=== PATIENT | female | born 1950 | race Caucasian/White ===

== ENCOUNTER 2023-08-08 09:58 | Outpatient (CLI) | payer MEDICARE, OTHER, SELFPAY ==
--- NOTE | 2023-08-08 10:00 | MM_ITS ---
WS: [id number] SCREENING DIGITAL BREAST TOMOSYNTHESIS MAMMOGRAM WITH CAD HISTORY: SCREENING COMPARISON: None available. Bilateral CC and MLO with tomosynthesis and synthetic mammography submitted. Computer aided detection analyzed. Breast composition: The breasts are heterogeneously dense, which may obscure small masses. Well-circu mscribed mass measuring 17 x 14 mm in the anterior LEFT breast near 11-12 o'clock. No calcifications. IMPRESSION: MM/[place] [id number] BI-RADS: 0-Incomplete: Need additional imaging evaluation FOLLOW UP: Need Additional Imaging Recommendation: LEFT breast ultrasound, limited. Anterior LEFT breast 11-12 o'c lock.
== END 2023-08-08 09:59 | disposition home or self-care (01) ==
LOC: MOBLMAM 10:05
PROVIDERS: PCP Nurse Practitioner Family; Visit Provider Nurse Practitioner Family
DX: Z12.31 Encounter for screening mammogram for malignant neoplasm of breast (principal)
CPT/HCPCS: 77063; 77067

== ENCOUNTER 2023-10-08 10:09 | Outpatient (CLI) | payer MEDICARE, OTHER, SELFPAY ==
--- NOTE | 2023-10-08 10:23 | US_ITS ---
WS: [id number] ULTRASOUND LEFT BREAST HISTORY: OTHER ABNORMAL INCONCLUSIVE FINDINGS follow-up screening mammogram 08/08/2023 COMPARISON: 08/08/2023 mammogram TECHNIQUE: 2-D and Doppler. Very well-circumscribed hypoechoic mass at 12:00, 2 cm from the nipple corresponds to the mammographi c abnormality. Mass measures 1.7 x 0.7 x 1.5 cm. This is a well-circumscribed mass and is most likely a fibroadenoma. IMPRESSION: US/US breast LT limited* [id number] BI-RADS: 4-Suspicious Finding-Biopsy Should Be Considered FOLLOW-UP: Biopsy Recommended Ultrasound guided biopsy recommended of the solid well-circumscribed mass at 12 :00 LEFT breast. Favor this is a benign fibroadenoma. Biopsy can be performed t o confirm diagnosis.
== END 2023-10-08 10:10 | disposition home or self-care (01) ==
LOC: RAD 10:10
PROVIDERS: PCP Nurse Practitioner Family; Visit Provider Nurse Practitioner Family
DX: N63.25 Unspecified lump in the left breast, overlapping quadrants (principal)
CPT/HCPCS: 76642

== ENCOUNTER → 2025-06-09 09:35 | Outpatient (BNVA) | payer MEDICARE, OTHER, SELFPAY | PROVIDERS: PCP Nurse Practitioner Family; Visit Provider Nurse Practitioner Family | DX: L57.8 Other skin changes due to chronic exposure to nonionizing radiation (principal); L82.1 Other seborrheic keratosis; L82.0 Inflamed seborrheic keratosis; Z78.9 Other specified health status; L53.8 Other specified erythematous conditions; D48.5 Neoplasm of uncertain behavior of skin; L57.0 Actinic keratosis | CPT/HCPCS: 11102; 17000; 17110; 99203 ==

== ENCOUNTER → 2025-06-15 12:27 | Outpatient (BNVA) | payer MEDICARE, OTHER, SELFPAY | PROVIDERS: PCP Nurse Practitioner Family; Visit Provider Dermatology | DX: C44.319 Basal cell carcinoma of skin of other parts of face (principal) | CPT/HCPCS: 12052; 17311 ==